=== PATIENT | male | born 1930 | race Caucasian/White ===

== ENCOUNTER 2017-02-21 00:40 | Day surgery (SDC) | payer MEDICARE ==
[~2017-02-21 00:40] MED LIST: ASPI81EC PO; Aspir 8181 MG PO; CELE100 PO; FINA5 PO; Flovent 44 mc10.6 GM; HYDCHL12.5 PO; HYDCHL25 PO; HYDR1TAB94 PO; LOSA50 PO; METO25 PO; METO50 PO; MULTI VITAMIN1 EACH PO; MULVITMINF PO; OMEP20ER PO; OXYB5 PO; OXYB5ER PO; Omeprazole20 M1 PO; SIMV40 PO; SIMV5 PO
== END 2017-02-21 22:46 | disposition home or self-care (01) ==
LOC: ATC 00:40
DX: C32.1 Malignant neoplasm of supraglottis (principal); R13.10 Dysphagia, unspecified

== ENCOUNTER 2017-02-22 00:17 | Day surgery (SDC) | payer MEDICARE | END 2017-02-22 23:32 | disposition home or self-care (01) | LOC: ATC 00:17 | DX: C32.1 Malignant neoplasm of supraglottis (principal); R13.10 Dysphagia, unspecified ==

== ENCOUNTER → 2018-06-30 | Outpatient (CLI) | payer MEDICARE | END | disposition home or self-care (01) | LOC: PLD 09:49 → LAB SHORT 09:49 | DX: L57.0 Actinic keratosis (principal) | CPT/HCPCS: 88305 ==